=== PATIENT | male | born 1980 | race African-American/Black ===

== ENCOUNTER 2017-04-01 10:51 | Emergency (ER) | payer OTHER ==
[~2017-04-01 10:51] MED LIST: FLOMAX0.4 M1 DOB; HYDROCODON-ACE1 EAC7 PO; NO MEDICATIONS; ZOFRAN ODT4 MG/UDTAB PO
== END 2017-04-01 13:51 | disposition home or self-care (01) ==
LOC: SED 10:51
DX: G44.209 Tension-type headache, unspecified, not intractable (principal); F19.10 Other psychoactive substance abuse, uncomplicated; F17.210 Nicotine dependence, cigarettes, uncomplicated
CPT/HCPCS: 96372; 96374; 96375; 99284; J1200; J1885; J2405; J2550